=== PATIENT | male | born 1985 | race American Indian/Alaskan Native ===

== ENCOUNTER 2017-10-12 06:49 | Emergency (ER) | payer OTHER ==
[2017-10-12 08:06] VITALS: BP 140/86
[2017-10-12] MEDS ORDERED: TORADOL IM ONE (10:43)
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
--- NOTE | 2017-10-12 11:24 | XRay Report ---
CERVICAL SPINE, 3 views: History: Neck pain. Findings: The vertebral bodies, disk spaces, posterior elements and prevertebral soft tissues are unremarkable. The dens is intact. No acute fracture or malalignment is identified. Impression: 1. No evidence for acute injury to the cervical spine.
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
== END 2017-10-12 12:10 | disposition home or self-care (01) ==
LOC: ED 06:49
DX: M54.2 Cervicalgia (principal); F17.200 Nicotine dependence, unspecified, uncomplicated; F12.90 Cannabis use, unspecified, uncomplicated; V49.49XA Driver injured in collision with other motor vehicles in traffic accident, initial encounter; Y93.89 Activity, other specified; Y99.8 Other external cause status; Y92.488 Other paved roadways as the place of occurrence of the external cause
CPT/HCPCS: 72040; 96372; 99283; J1885

== ENCOUNTER 2018-05-12 00:12 | Emergency (ER) | payer SELFPAY | END 2018-05-12 00:45 | disposition left against medical advice (07) | LOC: ED 00:12 ==

== ENCOUNTER 2019-01-17 21:31 | Emergency (ER) | payer SELFPAY ==
--- NOTE | 2019-01-17 21:46 | Event Note ---
ED Screening Note Date of service: 01/17/19 Time: 21:44 ED Screening Note: This is a 33 y.o. M. that presents to the ER with abdominal pain that is intermittent. Patient states pain is diffuse and not related to food. Reports symptoms for several months worse than usual today while at work. This initial assessment/diagnostic orders/clinical plan/treatment(s) is/are subject to change based on patients health status, clinical progression and re- assessment by fellow clinical providers in the ED. Further treatment and workup at subsequent clinical providers discretion. Patient/guardian urged not to elope from the ED as their condition may be serious if not clinically assessed and managed. Initial orders include: Labs
[2019-01-17 22:27] LABS: Basophils % (Auto) 0.6 % (0.0-1.8); Eosinophils # (Auto) 0.1 K/mm3 (0.0-0.4); Eosinophils % (Auto) 1.7 % (0.0-4.3); Hematocrit 48.2 % (35.5-45.6); Hemoglobin 15.9 gm/dl (11.8-15.2); Lymphocytes # (Auto) 2.7 K/mm3 (1.2-5.4); Lymphocytes % (Auto) 48.7 % (13.4-35.0); Mean Corpuscular HGB Conc 33 % (32-34); Mean Corpuscular Volume 91 fl (84-94); Monocytes # (Auto) 0.3 K/mm3 (0.0-0.8); Monocytes % (Auto) 6.1 % (0.0-7.3); Platelet Count 332 K/mm3 (140-440); Red Blood Count 5.31 M/mm3 (3.65-5.03); Red Cell Distribution Width 14.5 % (13.2-15.2)
[2019-01-17 22:50] LABS: Alanine Aminotransferase 19 units/L (7-56); Albumin 4.5 g/dL (3.9-5); BUN/Creatinine Ratio 7; Blood Urea Nitrogen 9 mg/dL (9-20); Calcium 9.6 mg/dL (8.4-10.2); Hemolysis Index 2
[2019-01-17] MEDS ORDERED: TORADOL IV ONE (23:41)
[2019-01-17] MEDS ORDERED: ZOFRAN IV ONE (23:41)
[2019-01-17] MEDS ORDERED: PEPCID IV ONE (23:41)
[2019-01-18 00:12] LABS: Bilirubin,Urine NEG (Negative); Blood,Urine NEG (Negative); Color,Urine Yellow (Yellow); Protein,Urine <15 mg/dL mg/dL (Negative)
[2019-01-18 00:27] LABS: Mucus,Urine Few /HPF
--- NOTE | 2019-01-18 01:25 | Cat Scan Report ---
CT ABDOMEN AND PELVIS WITH CONTRAST INDICATION: Diffuse abdominal pain for one week, question of colitis CONTRAST: 100 cc Omnipaque 300 IV COMPARISON: None available. All CT scans at this location are performed using CT dose reduction for ALARA by means of automated e xposure control. FINDINGS: Lung bases are clear. No pneumoperitoneum is seen. Mild fatty infiltration of the liver is seen. Liver is mildly enlarged and has a length of 18 cm. No urinary obstructive changes are seen. No masses are noted. No evidence of bowel obstruction is seen. No free fluid is noted. No lymphadenopat hy is seen. Gallbladder appears within normal limits. Appendix appears within normal limits. No focal inflammatory changes are seen. The descending colon and sigmoid colon are decompressed making evaluation difficult. I would have dif ficulty excluding mild wall edema and colitis but suspect this appearance is based just on the lack o f distention. No surrounding inflammation is seen and where there is gas adjacent to the wall there i s no obvious wall thickening. IMPRESSION: No definite acute abnormalities are seen. See comments concerning the left colon. Signer Name: Carson Elkins MD Signed: 01/18/2019 1:21 AM Workstation Name: [id number]
--- NOTE | 2019-01-18 02:39 | Emergency Department Report ---
ED Abdominal Pain HPI - General Chief Complaint: Abdominal Pain Stated Complaint: ABD PAIN Time Seen by Provider: 01/17/19 21:44 Source: patient Mode of arrival: Ambulatory Limitations: No Limitations - History of Present Illness Initial Comments: Patient is a 33-year-old -[place] male with no past medical history presenting to the ED with complaint of acute onset persistent intermittent diffuse abdominal pain with nausea for the last 8 hours. Patient states that in the last 4 hours, the pain got worse and increasing frequency. Patient denies vomiting, dizziness, fever, chills, cough, dysuria, urinary frequency and urgency, hematuria, hematemesis, hematochezia, chest pain, shortness of breath, cough, testicular pain or back pain. Patient denies eating at a restaurant or any food in the last 8 hours. MD Complaint: abdominal pain, other (Nausea ) -: Sudden, hour(s) (8) Location: diffuse Radiation: none Migration to: no migration Severity: moderate Severity scale (0 -10): 3 Quality: cramping, aching Consistency: intermittent Improves With: nothing Worsens With: nothing Associated Symptoms: denies other symptoms, nausea. denies: vomiting, diarrhea, fever, chills, dysuria, hematemesis, melena, anorexia, syncope - Related Data Previous Rx's Medication Instructions Recorded Last Taken Type Sulfamethoxazole/Trimethoprim 1 each PO BID #20 tablet 10/24/15 Unknown Rx [Bactrim DS TAB] Cyclobenzaprine [Flexeril] 10 mg PO TID PRN #12 tablet 10/12/17 Unknown Rx Ibuprofen [Motrin] 800 mg PO Q8HR PRN #25 tablet 10/12/17 Unknown Rx Dicyclomine [Bentyl] 20 mg PO Q6H PRN #24 tablet 01/18/19 Unknown Rx Ondansetron [Zofran Odt] 4 mg PO Q6HR PRN #12 tab.rapdis 01/18/19 Unknown Rx raNITIdine HCl [Zantac] 150 mg PO Q12H #30 tablet 01/18/19 Unknown Rx Allergies Allergy/AdvReac Type Severity Reaction Status Date / Time No Known Allergies Allergy Verified 10/24/15 15:35 ED Review of Systems ROS: Stated complaint: ABD PAIN Other details as noted in HPI Constitutional: denies: chills, fever Eyes: denies: eye pain, eye discharge, vision change ENT: denies: ear pain, throat pain Respiratory: denies: cough, shortness of breath, wheezing Cardiovascular: denies: chest pain, palpitations Endocrine: no symptoms reported Gastrointestinal: abdominal pain, nausea. denies: diarrhea Genitourinary: denies: urgency, dysuria Musculoskeletal: denies: back pain, joint swelling, arthralgia Skin: denies: rash, lesions Neurological: denies: headache, weakness, paresthesias Psychiatric: denies: anxiety, depression Hematological/Lymphatic: denies: easy bleeding, easy bruising ED Past Medical Hx - Past Medical History Previous Medical History?: No - Surgical History Past Surgical History?: No - Social History Smoking Status: Current Every Day Smoker Substance Use Type: None - Medications Home Medications: Home Medications Medication Instructions Recorded Confirmed Last Taken Type Sulfamethoxazole/Trimethoprim 1 each PO BID #20 tablet 10/24/15 Unknown Rx [Bactrim DS TAB] Cyclobenzaprine [Flexeril] 10 mg PO TID PRN #12 tablet 10/12/17 Unknown Rx Ibuprofen [Motrin] 800 mg PO Q8HR PRN #25 tablet 10/12/17 Unknown Rx Dicyclomine [Bentyl] 20 mg PO Q6H PRN #24 tablet 01/18/19 Unknown Rx Ondansetron [Zofran Odt] 4 mg PO Q6HR PRN #12 tab.rapdis 01/18/19 Unknown Rx raNITIdine HCl [Zantac] 150 mg PO Q12H #30 tablet 01/18/19 Unknown Rx ED Physical Exam - General Limitations: No Limitations General appearance: alert, in no apparent distress - Head Head exam: Present: atraumatic, normocephalic, normal inspection - Eye Eye exam: Present: normal appearance, PERRL, EOMI Pupils: Present: normal accommodation - ENT ENT exam: Present: normal exam, normal orophraynx, mucous membranes moist, TM's normal bilaterally, normal external ear exam - Neck Neck exam: Present: normal inspection, full ROM - Respiratory Respiratory exam: Present: normal lung sounds bilaterally. Absent: respiratory distress, wheezes, rales, chest wall tenderness, accessory muscle use, decreased breath sounds, prolonged expiratory - Cardiovascular Cardiovascular Exam: Present: regular rate, normal rhythm, normal heart sounds. Absent: systolic murmur, diastolic murmur, rubs, gallop - GI/Abdominal GI/Abdominal exam: Present: soft, tenderness (Mildly diffuse), normal bowel sounds. Absent: guarding, rebound, hyperactive bowel sounds, hypoactive bowel sounds, organomegaly - Rectal Rectal exam: Present: deferred - Extremities Exam Extremities exam: Present: normal inspection, normal capillary refill - Back Exam Back exam: Present: normal inspection, full ROM. Absent: tenderness, muscle spasm, paraspinal tenderness, vertebral tenderness - Neurological Exam Neurological exam: Present: alert, oriented X3, CN II-XII intact, normal gait, reflexes normal - Psychiatric Psychiatric exam: Present: normal affect, normal mood - Skin Skin exam: Present: warm, dry, intact, normal color. Absent: rash ED Course Vital Signs 01/17/19 01/17/19 01/18/19 21:35 21:45 00:05 Temperature 98.7 F 98.7 F Pulse Rate 97 H 88 Respiratory 16 16 16 Rate Blood Pressure 134/85 134/85 O2 Sat by Pulse 98 100 Oximetry 01/18/19 00:35 Temperature Pulse Rate Respiratory 16 Rate Blood Pressure O2 Sat by Pulse Oximetry - Reevaluation(s) Reevaluation #1: 01/18/19 02:41 This is a 33-year-old male who presented to the ED with complaint of abdominal pain with nausea for 8 hours. In the ED, patient is alert and oriented 3 and is not in distress. Patient was treated for pain in the ED and also given antiemetics. Lab test results were reviewed and are all nonactionable. Abdomen pelvis CT scan with contrast shows no acute pathology including absence of colitis. On reevaluation, the patient's pain is well controlled with medications and patient was discharged home on pain medications and antiemetics and advised to follow-up with his primary care physician in 7-10 days for reevaluation or return to the ED immediately if symptoms get worse. ED Medical Decision Making - Lab Data Result diagrams: 01/17/19 22:05 01/17/19 22:05 - Radiology Data Radiology results: report reviewed, image reviewed Findings [facility] [address] [place] [address] Cat Scan Report Signed Patient: ROCIO BRASWELL MR#: [id number] : 1985 Acct:[id number] Age/Sex: 33 / M ADM Date: 01/17/19 Loc: ED Attending Dr: Ordering Physician: MIRIAN ADAMSON Date of Service: 01/17/19 Procedure(s): CT abdomen pelvis w con Accession Number(s): [id number] cc: MIRIAN ADAMSON CT ABDOMEN AND PELVIS WITH CONTRAST INDICATION: Diffuse abdominal pain for one week, question of colitis CONTRAST: 100 cc Omnipaque 300 IV COMPARISON: None available. All CT scans at this location are performed using CT dose reduction for ALARA by means of automated exposure control. FINDINGS: Lung bases are clear. No pneumoperitoneum is seen. Mild fatty infiltration of the liver is seen. Liver is mildly enlarged and has a length of 18 cm. No urinary obstructive changes are seen. No masses are noted. No evidence of bowel obstruction is seen. No free fluid is noted. No lymphadenopathy is seen. Gallbladder appears within normal limits. Appendix appears within normal limits. No focal inflammatory changes are seen. The descending colon and sigmoid colon are decompressed making evaluation difficult. I would have difficulty excluding mild wall edema and colitis but suspect this appearance is based just on the lack of distention. No surrounding inflammation is seen and where there is gas adjacent to the wall there is no obvious wall thickening. IMPRESSION: No definite acute abnormalities are seen. See comments concerning the left colon. Signer Name: Carson Elkins MD Signed: 01/18/2019 1:21 AM Workstation Name: [id number] Transcribed By: Dictated By: Carson Elkins MD Electronically Authenticated By: Carson Elkins MD Signed Date/Time: 01/18/19 012 DD/ 0115 - Medical Decision Making This is a 33-year-old male who presented to the ED with complaint of abdominal pain with nausea for 8 hours. In the ED, patient is alert and oriented 3 and is not in distress. Patient was treated for pain in the ED and also given antiemetics. Lab test results were reviewed and are all nonactionable. Abdomen pelvis CT scan with contrast shows no acute pathology including absence of colitis. On reevaluation, the patient's pain is well controlled with medications and patient was discharged home on pain medications and antiemetics and advised to follow-up with his primary care physician in 7-10 days for reeva luation or return to the ED immediately if symptoms get worse - Differential Diagnosis abdominal pain, appendicitis; pancreatitis, kidney stones, colitis Critical care attestation.: If time is entered above; I have spent that time in minutes in the direct care of this critically ill patient, excluding procedure time. ED Disposition Clinical Impression: Abdominal pain Qualifiers: Abdominal location: generalized Qualified Code(s): R10.84 - Generalized a bdominal pain GERD (gastroesophageal reflux disease) Qualifiers: Esophagitis presence: without esophagitis Qualified Code(s): K21.9 - Gastro- esophageal reflux disease without esophagitis Disposition: TO HOME OR SELFCARE Is pt being admited?: No Does the pt Need Aspirin: No Condition: Stable Instructions: Abdominal Pain (ED), Gas and Bloating (ED), Gastroesophageal Reflux Disease (ED) Additional Instructions: Take medications with food, drink plenty of fluids and follow up with your primary care physician in 5-7 days for reevaluation. Return to the ED immedi ately if symptoms get worse. Prescriptions: Dicyclomine [Bentyl] 20 mg PO Q6H PRN #24 tablet PRN Reason: Pain , Severe (7-10) raNITIdine HCl [Zantac] 150 mg PO Q12H #30 tablet Ondansetron [Zofran Odt] 4 mg PO Q6HR PRN #12 tab.rapdis PRN Reason: Nausea Referrals: PRIMARY CARE, [Primary Care Provider] - 3-5 Days Forms: Work/School Release Form(ED) Time of Disposition: 02:35 Print Language: MALAGASY
[2019-01-18 06:35] VITALS: BP 120/84
== END 2019-01-18 02:43 | disposition home or self-care (01) ==
LOC: ED 21:31
DX: K21.9 Gastro-esophageal reflux disease without esophagitis (principal); F17.200 Nicotine dependence, unspecified, uncomplicated; Z79.899 Other long term (current) drug therapy
CPT/HCPCS: 36415; 74177; 80053; 81001; 83690; 85025; 96374; 96375; 99284; J1885; J2405; Q9967